=== PATIENT | female | born 1995 | race Caucasian/White ===

== ENCOUNTER 2016-08-31 12:19 | Emergency (ER) | payer OTHER ==
[~2016-08-31] VITALS: Ht 162.6 cm; Wt 83.0 kg
[2016-08-31 13:08] LABS: BASOPHIL % 0.2 % (0-2); PLATELET COUNT 194 x10^3mcL (130-400)
[2016-08-31 13:09] LABS: RED CELL DISTRIBUTION WIDTH 16.1 % (11.5-14.5)
[2016-08-31 13:42] LABS: CARBON DIOXIDE 29.3 mmol/L (21-32); CHLORIDE SERUM 104 mmol/L (98-107); CREATININE SERUM 0.7 mg/dL (0.6-1.0); GFR1 > 60 mL/min; GLUCOSE SERUM 90 mg/dL (74-106); POTASSIUM SERUM 3.6 mmol/L (3.5-5.1); SODIUM SERUM 140 mmol/L (136-145)
[2016-08-31 13:46] LABS: ALBUMIN 3.5 g/dL (3.4-5.0); ALKALINE PHOSPHATASE 72 U/L (46-116); ALT/SGPT 26 U/L (14-59); AMYLASE 42 U/L (25-115); AST/SGOT 20 U/L (15-37); BILIRUBIN TOTAL 0.3 mg/dL (0.20-1.00); LIPASE 73 IU/L (73-393)
[2016-08-31 14:46] VITALS: BP 122/83
== END 2016-08-31 14:56 | disposition home or self-care (01) ==
LOC: ED 12:19
PROVIDERS: Specialist
DX: R10.30 Lower abdominal pain, unspecified (principal); R11.10 Vomiting, unspecified
CPT/HCPCS: 83880; J1885; J2405; J7030

== ENCOUNTER 2017-08-17 13:34 | Emergency (ER) | payer OTHER ==
[~2017-08-17] VITALS: Ht 162.6 cm; Wt 80.3 kg
[2017-08-17 14:11] VITALS: Ht 162.6 cm; Wt 80.3 kg
[2017-08-17 15:11] LABS: BASOPHIL % 0.9 % (0-2); PLATELET COUNT 212 x10^3mcL (130-400)
[2017-08-17 15:14] LABS: RED CELL DISTRIBUTION WIDTH 15.1 % (11.5-14.5)
[2017-08-17 15:26] LABS: CALCIUM 9.1 mg/dL (8.5-10.1); CARBON DIOXIDE 26.5 mmol/L (21-32); CHLORIDE SERUM 102 mmol/L (98-107); CREATININE SERUM 0.7 mg/dL (0.6-1.0); GFR1 > 60 mL/min; GLUCOSE SERUM 99 mg/dL (74-106); POTASSIUM SERUM 3.8 mmol/L (3.5-5.1); SODIUM SERUM 137 mmol/L (136-145)
[2017-08-17 15:35] LABS: ALBUMIN 3.9 g/dL (3.4-5.0); ALKALINE PHOSPHATASE 77 U/L (46-116); ALT/SGPT 27 U/L (14-59); AST/SGOT 25 U/L (15-37); BILIRUBIN TOTAL 0.31 mg/dL (0.20-1.00); TOTAL PROTEIN, SERUM 7.5 g/dL (6.4-8.2)
[2017-08-17 16:35] VITALS: BP 132/74
== END 2017-08-17 16:35 | disposition home or self-care (01) ==
LOC: ED 13:34
PROVIDERS: Emergency Medicine
DX: G43.909 Migraine, unspecified, not intractable, without status migrainosus (principal); R10.30 Lower abdominal pain, unspecified
CPT/HCPCS: 36415

== ENCOUNTER 2017-09-05 17:50 | Emergency (ER) | payer OTHER ==
[~2017-09-05] VITALS: Ht 162.6 cm; Wt 79.4 kg
[2017-09-05 17:58] VITALS: Ht 162.6 cm; Wt 79.4 kg
[2017-09-05 21:35] VITALS: BP 123/74
== END 2017-09-05 21:35 | disposition home or self-care (01) ==
LOC: ED 17:50
DX: O26.891 Other specified pregnancy related conditions, first trimester (principal); G43.909 Migraine, unspecified, not intractable, without status migrainosus; Z3A.01 Less than 8 weeks gestation of pregnancy
CPT/HCPCS: J2765

== ENCOUNTER 2019-01-18 08:47 | Emergency (ER) | payer OTHER ==
[~2019-01-18] VITALS: Ht 162.6 cm; Wt 77.1 kg
[2019-01-18 08:56] VITALS: Ht 162.6 cm; Wt 77.1 kg
[2019-01-18 10:10] VITALS: BP 128/85
== END 2019-01-18 10:10 | disposition home or self-care (01) ==
LOC: ED 08:47
DX: M54.5 Low back pain (principal); G89.29 Other chronic pain; G43.909 Migraine, unspecified, not intractable, without status migrainosus